=== PATIENT | female | born 1945 | race Caucasian/White ===

== ENCOUNTER 2016-09-18 08:38 | Outpatient (CLI) | payer MEDICARE, BC | END 2016-09-18 08:39 | disposition home or self-care (01) | DX: E11.9 Type 2 diabetes mellitus without complications (principal); E78.9 Disorder of lipoprotein metabolism, unspecified ==

== ENCOUNTER 2016-09-28 07:40 | Outpatient (CLI) | payer MEDICARE, BC | END 2016-09-28 07:41 | disposition home or self-care (01) | DX: M54.9 Dorsalgia, unspecified (principal); R53.1 Weakness; W19.XXXA Unspecified fall, initial encounter; M48.06 Spinal stenosis, lumbar region; M25.78 Osteophyte, vertebrae ==

== ENCOUNTER 2016-11-14 14:00 | Outpatient (CLI) | payer MEDICARE, BC | END 2016-11-14 14:01 | disposition short-term general hospital (02) | DX: R07.9 Chest pain, unspecified (principal) | CPT/HCPCS: A0425; A0427 ==

== ENCOUNTER 2016-12-18 11:03 | Outpatient (CLI) | payer MEDICARE, BC | END 2016-12-18 11:04 | disposition home or self-care (01) | DX: E11.9 Type 2 diabetes mellitus without complications (principal) ==

== ENCOUNTER 2017-12-24 07:19 | Day surgery (SDC) | payer MEDICARE, BC ==
[2017-12-24] MEDS ORDERED: LACTATED RINGERS 1,000 ML IV ONE (07:44)
[2017-12-24] MEDS ORDERED: MIDAZOLAM 2 MG/2 ML VIAL IVP ONE (08:28)
[2017-12-24] MEDS ORDERED: fentaNYL 250 MCG/5 ML VIAL IVP ONE (08:28)
[2017-12-24] MEDS ORDERED: GLUCAGON 1 MG/ML VIAL IM ONE (08:28)
[2017-12-24 12:24] VITALS: BP 134/55
== END 2017-12-24 07:20 | disposition home or self-care (01) ==
LOC: SDS 07:19
PROVIDERS: ATTEND Surgery
PROC: 0DBN8ZX Excision of Sigmoid Colon, Via Natural or Artificial Opening Endoscopic, Diagnostic (ICD-10-PCS; principal; 2017-12-24 08:15)
DX: Z12.11 Encounter for screening for malignant neoplasm of colon (principal); D12.5 Benign neoplasm of sigmoid colon; K57.30 Diverticulosis of large intestine without perforation or abscess without bleeding; E11.9 Type 2 diabetes mellitus without complications; G47.33 Obstructive sleep apnea (adult) (pediatric); Z79.82 Long term (current) use of aspirin
CPT/HCPCS: 45384; J7120; 88305

== ENCOUNTER 2018-03-24 10:23 | Outpatient (CLI) | payer MEDICARE, BC ==
[2018-03-24 18:43] LABS: ALBUMIN/GLOBULIN RATIO 1.3 (1.0-2.2); ALKALINE PHOSPHATASE 58 IU/L (42-121); ALT ALANINE AMINOTRANSFERASE 25 IU/L (10-60); AST ASPARTATE AMINOTRANSFERASE 23 IU/L (10-42); BILIRUBIN,TOTAL 1.4 mg/dL (0.2-1.0); BUN - BLOOD UREA NITROGEN 13 mg/dL (6-20); CALCIUM 9.1 mg/dL (8.5-10.3); CARBON DIOXIDE - CO2 28 mmol/L (21-32); CHLORIDE 101 mmol/L (101-111); CHOL/HDL RATIO 4.3 (<4.4); CHOLESTEROL 212 mg/dL; CREATININE 0.6 mg/dL (0.4-1.0); GFR - MDRD 98 (>89); GLUCOSE 108 mg/dL (70-100); HDL CHOLESTEROL 49 mg/dL; LDL CHOLESTEROL,CALCULATED 142 mg/dL; LDL/HDL RATIO 2.9 (<4.4); SODIUM 137 mmol/L (135-145); TOTAL PROTEIN 7.2 g/dL (6.7-8.2); VLDL CHOLESTEROL 21 mg/dL
[2018-03-24 20:34] LABS: HB2 TOTAL 15.2 g/dL; HEMOGLOBIN A1C 0.64 g/dL
== END 2018-03-24 10:24 | disposition home or self-care (01) ==
LOC: LAB.F 10:23
PROVIDERS: ATTEND Physician Assistant Medical
DX: E78.9 Disorder of lipoprotein metabolism, unspecified (principal); R73.01 Impaired fasting glucose
CPT/HCPCS: 36415; 80053; 80061; 83036; 83721

== ENCOUNTER 2018-07-16 09:51 | Outpatient (CLI) | payer MEDICARE, BC ==
[2018-07-16 17:55] LABS: ALBUMIN 3.9 g/dL (3.2-5.5); ALBUMIN/GLOBULIN RATIO 1.3 (1.0-2.2); ALKALINE PHOSPHATASE 70 IU/L (42-121); ALT ALANINE AMINOTRANSFERASE 24 IU/L (10-60); AST ASPARTATE AMINOTRANSFERASE 20 IU/L (10-42); BILIRUBIN,TOTAL 1.1 mg/dL (0.2-1.0); BUN - BLOOD UREA NITROGEN 12 mg/dL (6-20); CALCIUM 8.8 mg/dL (8.5-10.3); CARBON DIOXIDE - CO2 29 mmol/L (21-32); CHLORIDE 103 mmol/L (101-111); CHOL/HDL RATIO 4.4 (<4.4); CHOLESTEROL 221 mg/dL; CREATININE 0.4 mg/dL (0.4-1.0); GFR - MDRD 157 (>89); GLUCOSE 107 mg/dL (70-100); HDL CHOLESTEROL 50 mg/dL; LDL CHOLESTEROL,CALCULATED 143 mg/dL; LDL/HDL RATIO 2.9 (<4.4); SODIUM 137 mmol/L (135-145); TOTAL PROTEIN 6.9 g/dL (6.7-8.2); VLDL CHOLESTEROL 28 mg/dL
[2018-07-16 18:33] LABS: HB2 TOTAL 14.6 g/dL; HEMOGLOBIN A1C 0.6 g/dL; HEMOGLOBIN A1C % 5.9 % (4.6-6.2)
== END 2018-07-16 09:52 | disposition home or self-care (01) ==
LOC: LAB.F 09:51
PROVIDERS: ATTEND Physician Assistant Medical
DX: Z51.81 Encounter for therapeutic drug level monitoring (principal); R73.01 Impaired fasting glucose; E78.9 Disorder of lipoprotein metabolism, unspecified; Z79.899 Other long term (current) drug therapy; E78.5 Hyperlipidemia, unspecified
CPT/HCPCS: 36415; 80053; 80061; 83036; 83721

== ENCOUNTER 2019-03-09 12:02 | Emergency (ER) | payer MEDICARE, BC ==
--- NOTE | 2019-03-09 12:45 | ED Physician Documentation ---
PD HPI LOWER EXT INJURY - Stated complaint Stated Complaint: LT FOOT PX/GLF - Chief complaint Chief Complaint: Trauma Ext - History obtained from History obtained from: Patient - History of Present Illness PD HPI LOW EXT INJURY LOCATION: Left (trip and fall yesterday tripping on a hose yesterday at 3pm. C/O L shoulder and foot pain. No head/neck inj. Can walk without limp.) Review of Systems Constitutional: denies: Fever, Chills Cardiac: denies: Chest pain / pressure, Palpitations Respiratory: denies: Dyspnea, Cough Musculoskeletal: reports: Pain with weight bearing Neurologic: denies: Headache, Head injury, LOC PD PAST MEDICAL HISTORY - Past Medical History Cardiovascular: Arrhythmia Respiratory: Asthma Neuro: None Endocrine/Autoimmune: Type 2 diabetes GI: Chronic constipation : Kidney stones, Other HEENT: None Psych: Anxiety Musculoskeletal: Gout, Chronic back pain, Other Derm: Herpes zoster - Past Surgical History Past Surgical History: Yes General: Cholecystectomy, Appendectomy /SIGNAL FITTER: Hysterectomy - Present Medications Home Medications: Ambulatory Orders Medication Instructions Recorded Confirmed EPINEPHrine [Epipen] 0.3 mg IM ONCE PRN 01/19/13 12/24/17 Aspirin [Aspir 81] 81 mg PO DAILY PRN 03/10/14 12/23/17 Albuterol Sulfate [Proair Hfa 1 - 2 puffs INH Q4H PRN 12/23/17 12/23/17 Inhaler] Alprazolam [Alprazolam Odt] 0.25 mg PO PRN PRN 12/23/17 12/24/17 Cholecalciferol (Vitamin D3) 4,000 unit PO DAILY 12/23/17 12/24/17 [Vitamin D3] Fexofenadine HCl 180 mg PO DAILY 12/23/17 12/24/17 Fluticasone [Flonase] 1 sprays PARAM BID 12/23/17 12/24/17 Knee Scooter 1 unit TD ONCE #1 03/09/19 - Allergies Allergies/Adverse Reactions: Allergies Allergy/AdvReac Type Severity Reaction Status Date / Time ipratropium bromide * Allergy Respiratory Verified 03/09/19 12:13 [From Atrovent] peanut Allergy Anaphylaxis Verified 03/09/19 12:13 Penicillins Allergy Rash Verified 03/09/19 12:13 Sulfa (Sulfonamide Allergy Rash Verified 03/09/19 12:13 Antibiotics) apples Allergy Severe Respiratory Uncoded 03/09/19 12:13 kiwi Allergy Severe Respiratory Uncoded 03/09/19 12:13 strawberries Allergy Severe Respiratory Uncoded 03/09/19 12:13 guafenisin Allergy Mild Respiratory Uncoded 03/09/19 12:13 - Social History Does the pt smoke?: No Smoking Status: Never smoker Does the pt drink ETOH?: Yes Does the pt have substance abuse?: No - Immunizations Immunizations are current?: No - POLST Patient has POLST: Yes POLST Status: unk PD ED PE NORMAL - Vitals Vital signs reviewed: Yes - General General: Alert and oriented X 3, No acute distress - Neck Neck: Supple, no meningeal sign, No bony TTP - Back Back: No spinal TTP - Extremities Extremities: Other (Anterior L shoulder TTP and upper bicep, cannot abduct but flex/ext is ok but with pain. Ecchymosis about lateral hip but no TTP. Lateral left foot swollen and TTP.) - Neuro Neuro: Alert and oriented X 3, Normal speech - Psych Psych: Normal mood, Normal affect Results - Vitals Vitals: Vital Signs - 24 hr 03/09/19 12:13 Temperature 37 C Heart Rate 66 Respiratory 20 Rate Blood Pressure 148/79 H O2 Saturation 99 Oxygen O2 Source Room air - Rads (name of study) X-rays of the left shoulder and left foot Radiology: EMP read contemporaneously (Left shoulder is negative, the left foot she has a mildly displaced shaft fracture of the fifth metatarsal) PD MEDICAL DECISION MAKING - ED course ED course: After discussion she refused fiberglass splinting which I recommended along with nonweightbearing status pending orthopedic follow-up. As such she signed AMA only for the fiberglass splint, and will go into a boot pending orthopedic follow-up. She understands she should still be nonweightbearing. Departure - Departure Disposition: 01 Home, Self Care Clinical Impression: Contusion of left shoulder Qualifiers: Encounter type: initial encounter Qualified Code(s): S40.012A - Contusion of left shoulder, initial encounter Fracture of fifth metatarsal bone of left foot Qualifiers: Encounter type: initial encounter Fracture type: closed Fracture alignment: displaced Qualified Code(s): S92.352A - Displaced fracture of fifth metatarsal bone, left foot, initial encounter for closed fracture Condition: Good Record reviewed to determine appropriate education?: Yes Instructions: ED Fx Foot Follow-Up: [facility] [Provider Group] Prescriptions: Knee Scooter 1 unit TD ONCE #1 Comments: As discussed, I recommended that she go into a fiberglass splint and be nonweightbearing. You have refused this and we are placing you in a boot instead. Do not walk on it. Follow-up with the orthopedic surgeon as soon as possible.
--- NOTE | 2019-03-09 13:39 | XRAY Report ---
Reason: foot / shoulder injury, fall Procedure Date: 03/09/2019 Accession Number: [id number] / [id number] Procedure: XR - Shoulder 3 View LT CPT Code: FULL RESULT: EXAM: LEFT SHOULDER RADIOGRAPHY EXAM DATE: 03/09/2019 01:23 PM. CLINICAL HISTORY: Foot / shoulder injury, fall. COMPARISON: None available. TECHNIQUE: 3 views. FINDINGS: Bones: No acute fracture or dislocation. Joints: The glenohumeral and acromioclavicular joints are intact. Mild degenerative change of the acromioclavicular joint. Soft tissues: Unremarkable. IMPRESSION: No acute fracture or dislocation of the left shoulder. RADIA
--- NOTE | 2019-03-09 13:42 | XRAY Report ---
Reason: foot / shoulder injury, fall Procedure Date: 03/09/2019 Accession Number: [id number] / [id number] Procedure: XR - Foot 3 View LT CPT Code: FULL RESULT: EXAM: LEFT FOOT RADIOGRAPHY EXAM DATE: 03/09/2019 01:18 PM. CLINICAL HISTORY: Foot / shoulder injury, fall. COMPARISON: LEFT FOOT 04/23/2006 10:05 AM. TECHNIQUE: 3 views. FINDINGS: Bones: There is an acute fracture of the left fifth metatarsal diaphysis, which is displaced medially approximately 4 mm. No additional fractures or dislocations. Degenerative calcaneal spurring at the posterior and plantar surfaces. Joints: Redemonstrated hallux valgus deformity. Mild narrowing of the first metatarsophalangeal joint space. No ankle joint effusion. Soft Tissues: Soft tissue swelling at the fracture site. Probable bunion formation medial to the first metatarsal head. Small enthesophyte formation in the distal Achilles tendon near the calcaneal attachment. No radiopaque foreign body. IMPRESSION: Acute, mildly displaced fracture through the left fifth metatarsal diaphysis. RADIA
[2019-03-09 14:08] VITALS: BP 151/84
== END 2019-03-09 14:16 | disposition home or self-care (01) ==
LOC: ED 12:02
DX: S40.012A Contusion of left shoulder, initial encounter (principal); S92.352A Displaced fracture of fifth metatarsal bone, left foot, initial encounter for closed fracture; W01.0XXA Fall on same level from slipping, tripping and stumbling without subsequent striking against object, initial encounter; E11.9 Type 2 diabetes mellitus without complications
CPT/HCPCS: 99282; 99284

== ENCOUNTER 2019-05-19 15:55 | Outpatient (CLI) | payer MEDICARE, BC | END 2019-05-19 23:59 | disposition home or self-care (01) | LOC: LAB.R 15:55 | PROVIDERS: ATTEND Family Medicine | DX: R39.15 Urgency of urination (principal) | CPT/HCPCS: 87086; 87181 ==

== ENCOUNTER 2019-09-02 09:11 | Outpatient (CLI) | payer MEDICARE, BC ==
--- NOTE | 2019-09-02 17:03 | Ultrasound Report ---
Reason: FACIAL NUMBNESS Procedure Date: 09/02/2019 Accession Number: [id number] / [id number] Procedure: US - Carotid Doppler Complete CPT Code: Final Report FULL RESULT: EXAM: BILATERAL CAROTID AND VERTEBRAL ARTERY DUPLEX DOPPLER ULTRASOUND: EXAM DATE: 09/02/2019 10:19 AM CLINICAL HISTORY: Facial numbness. COMPARISON: None. TECHNIQUE: Grayscale imaging, color Doppler, and duplex spectral Doppler were used to evaluate the carotid and vertebral arteries bilaterally. Static images were obtained. FINDINGS: Mild diffuse intimal thickening. No significant plaque is identified in the right or left common or internal carotid arteries. Normal antegrade flow is present in bilateral vertebral arteries. VELOCITIES (cm/sec): Right CCA mid: PSV 72 cm/sec CCA dist: PSV 76 cm/sec ICA prox: PSV 58 cm/sec, EDV 19 cm/sec ICA mid: PSV 116 cm/sec, EDV 45 cm/sec ICA dist: PSV 44 cm/sec, EDV 18 cm/sec ECA: PSV 66 cm/sec Vert: PSV 74 cm/sec ICA/CCA: 1.53 Left CCA mid: PSV 95 cm/sec CCA dist: PSV 78 cm/sec ICA prox: PSV 85 cm/sec, EDV 22 cm/sec ICA mid: PSV 92 cm/sec, EDV 25 cm/sec ICA dist: PSV 69 cm/sec, EDV 26 cm/sec ECA: PSV 78 cm/sec Vert: PSV 69 cm/sec ICA/CCA: 0.89 ICA diameter stenosis: Right: <50% by velocity and <70% by NASCET criteria. Left: <50% by velocity and <70% by NASCET criteria. IMPRESSION: 1. Minimal bilateral intimal thickening. Nohemodynamically significant stenosis bilaterally. 3. Normal antegrade flow in bilateral vertebral arteries. General Recommendations: Stenosis =50% ICA - Follow-up ultrasound 6-12 months Stenosis <50% ICA - High Risk Patient with plaque - Follow-up ultrasound 1-2 years Normal Study but High Risk Patient - Follow-up ultrasound 3-5 years Management recommendations and diagnostic criteria are based on current IAC endorsed standards in Carotid Artery Stenosis: Grayscale and Doppler Ultrasound Diagnosis. Validated velocity measurements with angiographic measurements and velocity criteria are extrapolated from diameter data as defined by the Society of Radiologists in Ultrasound Consensus Conference Radiology 2003; 229;340-346. RADIA
== END 2019-09-02 09:12 | disposition home or self-care (01) ==
LOC: DI 09:11
PROVIDERS: ATTEND Physician Assistant Medical
DX: R20.0 Anesthesia of skin (principal); R29.810 Facial weakness
CPT/HCPCS: 93880

== ENCOUNTER 2019-10-06 08:00 | Outpatient (CLI) | payer MEDICARE, BC | END 2019-10-06 23:59 | disposition home or self-care (01) | LOC: LAB.F 08:00 | PROVIDERS: ATTEND Family Medicine | DX: J02.9 Acute pharyngitis, unspecified (principal) ==

== ENCOUNTER 2020-01-28 07:54 | Outpatient (CLI) | payer MEDICARE, BC ==
[2020-01-28 14:59] LABS: BASOPHILS # (AUTO) 0.1 10^3/uL (0.0-0.1); BASOPHILS % (AUTO) 0.7 %; EOSINOPHILS # (AUTO) 0.4 10^3/uL (0.0-0.7); EOSINOPHILS % (AUTO) 4.5 %; HGB - HEMOGLOBIN 14.3 g/dL (12.0-16.0); LYMPHOCYTES # (AUTO) 2.4 10^3/uL (1.5-3.5); LYMPHOCYTES % (AUTO) 27.3 %; MEAN CORPUSCULAR HEMOGLOBIN 27.4 pg (27.0-31.0); MEAN CORPUSCULAR HGB CONC 31.8 g/dL (32.0-36.0); MEAN CORPUSCULAR VOLUME 86.2 fL (81.0-99.0); MEAN PLATELET VOLUME 9.5 fL (7.9-10.8); MONOCYTES # (AUTO) 0.6 10^3/uL (0.0-1.0); MONOCYTES % (AUTO) 7.1 %; NEUTROPHILS # (AUTO) 5.3 10^3/uL (1.5-6.6); NEUTROPHILS % (AUTO) 60.1 %; PLT - PLATELET COUNT 401 10^3/uL (130-450); RED BLOOD COUNT 5.22 10^6/uL (4.20-5.40); RED CELL DISTRIBUTION WIDTH 13.8 % (12.0-15.0); WHITE BLOOD COUNT 8.7 x10^3/uL (4.8-10.8)
[2020-01-28 15:30] LABS: ALBUMIN 3.8 g/dL (3.2-5.5); ALBUMIN/GLOBULIN RATIO 1.2 (1.0-2.2); ALKALINE PHOSPHATASE 63 IU/L (42-121); ALT ALANINE AMINOTRANSFERASE 18 IU/L (10-60); AST ASPARTATE AMINOTRANSFERASE 18 IU/L (10-42); BUN - BLOOD UREA NITROGEN 12 mg/dL (6-20); CALCIUM 8.8 mg/dL (8.5-10.3); CARBON DIOXIDE - CO2 29 mmol/L (21-32); CHLORIDE 103 mmol/L (101-111); CHOL/HDL RATIO 4.6 (<4.4); CHOLESTEROL 193 mg/dL; CREATININE 0.6 mg/dL (0.4-1.0); GLUCOSE 106 mg/dL (70-100); HDL CHOLESTEROL 42 mg/dL; LDL CHOLESTEROL,CALCULATED 122 mg/dL; LDL/HDL RATIO 2.9 (<4.4); SODIUM 138 mmol/L (135-145); VLDL CHOLESTEROL 29 mg/dL
[2020-01-28 15:51] LABS: HB2 TOTAL 14.5 g/dL; HEMOGLOBIN A1C 0.6 g/dL; HEMOGLOBIN A1C % 5.9 % (4.6-6.2)
== END 2020-01-28 07:55 | disposition home or self-care (01) ==
LOC: LAB.S 07:54
PROVIDERS: ATTEND Family Medicine
DX: Z00.00 Encounter for general adult medical examination without abnormal findings (principal); Z51.81 Encounter for therapeutic drug level monitoring; G47.9 Sleep disorder, unspecified; R73.01 Impaired fasting glucose; E78.5 Hyperlipidemia, unspecified
CPT/HCPCS: 36415; 80053; 80061; 83036; 83721; 84443; 85025

== ENCOUNTER 2020-02-25 14:40 | Outpatient (CLI) | payer MEDICARE, BC | END 2020-02-25 23:59 | disposition home or self-care (01) | LOC: COV 14:40 | PROVIDERS: ATTEND Family Medicine | DX: R05 Cough (principal); R09.81 Nasal congestion; Z20.828 Contact with and (suspected) exposure to other viral communicable diseases ==

== ENCOUNTER 2020-06-13 09:30 | Outpatient (CLI) | payer MEDICARE, BC | END 2020-06-13 23:59 | disposition home or self-care (01) | LOC: LAB.R 09:30 | PROVIDERS: ATTEND Physician Assistant Medical | DX: N39.0 Urinary tract infection, site not specified (principal); R30.0 Dysuria | CPT/HCPCS: 87086; 87181 ==

== ENCOUNTER 2020-07-03 14:29 | Outpatient (CLI) | payer MEDICARE, BC ==
--- NOTE | 2020-07-03 15:42 | XRAY Report ---
PROCEDURE: Shoulder 3 View BILAT INDICATIONS: PAIN, SHOULDER TECHNIQUE: 3 views of each shoulder were acquired. COMPARISON: 03/09/2019 FINDINGS: Bones: No fractures or dislocations. No suspicious bony lesions. Visualized ribs appear intact. A ge-appropriate degenerative changes are seen. Soft tissues: No suspicious soft tissue calcifications. The visualized lung demonstrates a normal a ppearance. IMPRESSION: Unremarkable shoulder plain films for age, with age-appropriate degenerative changes not ed. If it would be helpful for clinical management decision making, please consider a dedicated shoulder MRI for further evaluation (assuming that there is no contraindication). If there is strong clinical concern for labral pathology, then please consider performing this according to the arthrogram protoc ol. Reviewed by: Luther Angelo MD on 07/03/2020 2:40 PM [facility] Approved by: Luther Angelo MD on 07/03/2020 2:40 PM [facility] Station ID: [id number]
[2020-07-03 18:24] LABS: BASOPHILS # (AUTO) 0.1 10^3/uL (0.0-0.1); BASOPHILS % (AUTO) 0.7 %; EOSINOPHILS # (AUTO) 0.2 10^3/uL (0.0-0.7); EOSINOPHILS % (AUTO) 2.4 %; HGB - HEMOGLOBIN 12.9 g/dL (12.0-16.0); LYMPHOCYTES # (AUTO) 2.3 10^3/uL (1.5-3.5); LYMPHOCYTES % (AUTO) 27.8 %; MEAN CORPUSCULAR HEMOGLOBIN 26.7 pg (27.0-31.0); MEAN CORPUSCULAR HGB CONC 31.2 g/dL (32.0-36.0); MEAN CORPUSCULAR VOLUME 85.5 fL (81.0-99.0); MEAN PLATELET VOLUME 9.3 fL (7.9-10.8); MONOCYTES # (AUTO) 0.6 10^3/uL (0.0-1.0); MONOCYTES % (AUTO) 6.8 %; NEUTROPHILS # (AUTO) 5.2 10^3/uL (1.5-6.6); NEUTROPHILS % (AUTO) 61.9 %; PLT - PLATELET COUNT 425 10^3/uL (130-450); RED BLOOD COUNT 4.84 10^6/uL (4.20-5.40); RED CELL DISTRIBUTION WIDTH 13.8 % (12.0-15.0); WHITE BLOOD COUNT 8.4 x10^3/uL (4.8-10.8)
[2020-07-03 18:53] LABS: RHEUMATOID FACTOR NEGATIVE (Negative)
== END 2020-07-03 14:30 | disposition home or self-care (01) ==
LOC: DI.S 14:29
PROVIDERS: ATTEND Internal Medicine
DX: M25.512 Pain in left shoulder (principal); M25.511 Pain in right shoulder; M25.50 Pain in unspecified joint
CPT/HCPCS: 36415; 85025; 85651; 86038; 86430

== ENCOUNTER 2020-08-29 08:00 | Outpatient (CLI) | payer MEDICARE, BC | END 2020-08-29 23:59 | disposition home or self-care (01) | LOC: LAB.R 08:00 | PROVIDERS: ATTEND Internal Medicine | DX: R30.0 Dysuria (principal) | CPT/HCPCS: 87086 ==

== ENCOUNTER 2021-01-30 17:32 | Outpatient (CLI) | payer MEDICARE, BC | END 2021-01-30 17:33 | disposition home or self-care (01) | LOC: COV 17:32 | PROVIDERS: ATTEND Urology | DX: Z01.812 Encounter for preprocedural laboratory examination (principal); Z20.822 Contact with and (suspected) exposure to COVID-19 ==

== ENCOUNTER 2021-03-14 17:35 | Outpatient (CLI) | payer MEDICARE, BC ==
[2021-03-14 19:52] LABS: BASOPHILS # (AUTO) 0.1 10^3/uL (0.0-0.1); BASOPHILS % (AUTO) 0.6 %; EOSINOPHILS # (AUTO) 0.3 10^3/uL (0.0-0.7); EOSINOPHILS % (AUTO) 3.9 %; HCT - HEMATOCRIT 37.8 % (37.0-47.0); HGB - HEMOGLOBIN 12.1 g/dL (12.0-16.0); LYMPHOCYTES # (AUTO) 2.2 10^3/uL (1.5-3.5); LYMPHOCYTES % (AUTO) 28.1 %; MEAN CORPUSCULAR HEMOGLOBIN 27.6 pg (27.0-31.0); MEAN CORPUSCULAR VOLUME 86.1 fL (81.0-99.0); MEAN PLATELET VOLUME 9.2 fL (7.9-10.8); MONOCYTES # (AUTO) 0.6 10^3/uL (0.0-1.0); MONOCYTES % (AUTO) 7.3 %; NEUTROPHILS # (AUTO) 4.6 10^3/uL (1.5-6.6); NEUTROPHILS % (AUTO) 59.7 %; PLT - PLATELET COUNT 377 10^3/uL (130-450); RED BLOOD COUNT 4.39 10^6/uL (4.20-5.40); RED CELL DISTRIBUTION WIDTH 13.7 % (12.0-15.0); WHITE BLOOD COUNT 7.8 x10^3/uL (4.8-10.8)
[2021-03-14 20:12] LABS: ALBUMIN 3.9 g/dL (3.2-5.5); ALBUMIN/GLOBULIN RATIO 1.4 (1.0-2.2); BILIRUBIN,TOTAL 0.7 mg/dL (0.2-1.0); POTASSIUM 4.1 mmol/L (3.5-5.0); TOTAL PROTEIN 6.7 g/dL (6.7-8.2)
[2021-03-14 21:10] LABS: ESTIMATED AVERAGE GLUCOSE 126 mg/dL (70-100)
== END 2021-03-14 17:36 | disposition home or self-care (01) ==
LOC: LAB.S 17:35
PROVIDERS: ATTEND Internal Medicine
DX: Z00.00 Encounter for general adult medical examination without abnormal findings (principal); Z79.899 Other long term (current) drug therapy; R73.01 Impaired fasting glucose
CPT/HCPCS: 36415; 80053; 83036; 85025

== ENCOUNTER 2021-05-12 16:26 | Outpatient (CLI) | payer MEDICARE, BC ==
[2021-05-12 20:08] LABS: ALBUMIN 3.8 g/dL (3.2-5.5); ALBUMIN/GLOBULIN RATIO 1.2 (1.0-2.2); CALCIUM 8.9 mg/dL (8.5-10.3); CREATININE 1.1 mg/dL (0.4-1.0); POTASSIUM 3.6 mmol/L (3.5-5.0); TOTAL PROTEIN 7.1 g/dL (6.7-8.2); URIC ACID 5.3 mg/dL (2.6-7.2)
== END 2021-05-12 16:27 | disposition home or self-care (01) ==
LOC: LAB.S 16:26
PROVIDERS: ATTEND Internal Medicine
DX: M10.9 Gout, unspecified (principal); Z79.899 Other long term (current) drug therapy
CPT/HCPCS: 36415; 80053; 84550

== ENCOUNTER 2021-07-19 19:44 | Outpatient (CLI) | payer MEDICARE, BC ==
--- NOTE | 2021-07-19 21:03 | Ultrasound Report ---
PROCEDURE: Duplex Ext Veins Right INDICATIONS: RIGHT CALF PAIN TECHNIQUE: Real-time imaging, as well as color and pulse Doppler interrogation, were performed of the lower extr emity deep veins from the inguinal ligament to the popliteal fossa. COMPARISON: None. FINDINGS: The deep veins are normally compressible, and free of intraluminal thrombus. Color and pu lse Doppler demonstrate normal phasic intraluminal flow. There is normal augmentation response to di stal compression maneuver. There is a large cystic collection in the posterior calf which may represent a large anchor cyst. It measures 2.2 x 3.2 x 7.5 cm. IMPRESSION: 1. No evidence of DVT, right lower extremity. 2. 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 Reviewed by: Shen Mendez MD on 07/19/2021 9:02 PM [facility] Approved by: Shen Mendez MD on 07/19/2021 9:02 PM [facility] Station ID: [id number]
== END 2021-07-19 19:45 | disposition home or self-care (01) ==
LOC: DI 19:44
PROVIDERS: ATTEND Internal Medicine
DX: M79.661 Pain in right lower leg (principal)

== ENCOUNTER 2021-09-11 11:36 | Outpatient (CLI) | payer MEDICARE, BC ==
[2021-09-11 15:38] LABS: ALBUMIN 3.6 g/dL (3.2-5.5); CALCIUM 9.2 mg/dL (8.5-10.3); PHOSPHORUS 3.1 mg/dL (2.5-4.6)
[2021-09-13 10:08] LABS: NIL 0.17 IU/mL; TB1-NIL 2.55 IU/mL; TB2-NIL 2.31 IU/mL
== END 2021-09-11 11:37 | disposition home or self-care (01) ==
LOC: LAB.S 11:36
PROVIDERS: ATTEND Internal Medicine
DX: N18.2 Chronic kidney disease, stage 2 (mild) (principal)
CPT/HCPCS: 36415; 80069; 86480

== ENCOUNTER 2021-09-20 13:47 | Outpatient (CLI) | payer MEDICARE, BC ==
[2021-09-20 21:11] LABS: BILIRUBIN,URINE NEGATIVE (NEGATIVE); CLARITY,URINE CLEAR (CLEAR); GLUCOSE, URINE (UA) NEGATIVE (NEGATIVE); KETONES,URINE (UA) NEGATIVE (NEGATIVE); LEUKOCYTE ESTERASE, URINE SMALL (NEGATIVE); NITRITE,URINE NEGATIVE (NEGATIVE); OCCULT BLOOD,URINE SMALL (NEGATIVE); PROTEIN,URINE NEGATIVE (NEGATIVE); UROBILINOGEN,URINE 0.2 (NORMAL) E.U./dL (NORMAL)
[2021-09-20 21:21] LABS: BACTERIA,URINE Rare /HPF (None Seen); SQUAMOUS EPITHELIAL CELL,UR MOD Squamous (<= Few)
== END 2021-09-20 13:48 | disposition home or self-care (01) ==
LOC: LAB.S 13:47
PROVIDERS: ATTEND Urology
DX: R35.0 Frequency of micturition (principal)
CPT/HCPCS: 36415; 80069; 81001; 81003; 87086

== ENCOUNTER 2021-09-29 08:00 | Outpatient (CLI) | payer MEDICARE, BC | END 2021-09-29 23:59 | disposition home or self-care (01) | LOC: LAB.F 08:00 | PROVIDERS: ATTEND Registered Nurse | DX: R30.0 Dysuria (principal) | CPT/HCPCS: 81002 ==

== ENCOUNTER 2021-10-03 10:57 | Outpatient (CLI) | payer MEDICARE, BC ==
[2021-10-03 15:30] LABS: ALBUMIN 3.7 g/dL (3.2-5.5); ALBUMIN/GLOBULIN RATIO 1.1 (1.0-2.2); BILIRUBIN,TOTAL 0.9 mg/dL (0.2-1.0); CALCIUM 8.9 mg/dL (8.5-10.3); CREATININE 0.9 mg/dL (0.4-1.0); POTASSIUM 4.2 mmol/L (3.5-5.0)
[2021-10-03 21:09] LABS: ESTIMATED AVERAGE GLUCOSE 123 mg/dL (70-100); HEMOGLOBIN A1c% 5.9 % (4.27-6.07)
== END 2021-10-03 10:58 | disposition home or self-care (01) ==
LOC: LAB.S 10:57
PROVIDERS: ATTEND Internal Medicine
DX: I10 Essential (primary) hypertension (principal); R73.9 Hyperglycemia, unspecified
CPT/HCPCS: 36415; 80053; 83036

== ENCOUNTER 2021-12-29 08:00 | Outpatient (CLI) | payer MEDICARE, BC ==
[2021-12-29 14:55] LABS: BASOPHILS # (AUTO) 0.1 10^3/uL (0.0-0.1); BASOPHILS % (AUTO) 0.6 %; EOSINOPHILS # (AUTO) 0.1 10^3/uL (0.0-0.7); EOSINOPHILS % (AUTO) 1.4 %; HCT - HEMATOCRIT 40.6 % (37.0-47.0); HGB - HEMOGLOBIN 13.1 g/dL (12.0-16.0); LYMPHOCYTES # (AUTO) 1.5 10^3/uL (1.5-3.5); LYMPHOCYTES % (AUTO) 17.1 %; MEAN CORPUSCULAR HEMOGLOBIN 26.7 pg (27.0-31.0); MEAN CORPUSCULAR HGB CONC 32.3 g/dL (32.0-36.0); MEAN CORPUSCULAR VOLUME 82.9 fL (81.0-99.0); MEAN PLATELET VOLUME 9.1 fL (7.9-10.8); MONOCYTES # (AUTO) 0.5 10^3/uL (0.0-1.0); MONOCYTES % (AUTO) 5.6 %; NEUTROPHILS # (AUTO) 6.7 10^3/uL (1.5-6.6); PLT - PLATELET COUNT 438 10^3/uL (130-450); RED CELL DISTRIBUTION WIDTH 14.1 % (12.0-15.0); WHITE BLOOD COUNT 8.9 x10^3/uL (4.8-10.8)
[2021-12-29 15:02] LABS: CREATININE 0.9 mg/dL (0.4-1.0); MAGNESIUM 2.4 mg/dL (1.7-2.8)
== END 2021-12-29 23:59 | disposition home or self-care (01) ==
LOC: LAB.S 08:00
PROVIDERS: ATTEND Emergency Medicine
DX: I10 Essential (primary) hypertension (principal); M79.662 Pain in left lower leg
CPT/HCPCS: 36415; 80048; 83735; 85025; 85379

== ENCOUNTER 2022-03-14 11:00 | Outpatient (CLI) | payer MEDICARE, BC ==
[2022-03-14 12:17] VITALS: BP 125/80
--- NOTE | 2022-03-14 12:17 | SLEEP CARE CONSULTATION ---
Information from patient questionnaire entered by Lacey Wilson MA. I have reviewed and concur with the information entered by Lacey Wilson MA. This document represents the service I personally performed and the decisions made by me, Jerrica Robertson ARNP. History of Present Illness Service Date and Time: 03/14/2022 1100 Reason for Visit: New patient (ONSET 08/12/2019, PRIOR SS, PT WILL BRING PRIOR,) Accompanied by: Spouse Chief Complaint: reports: Insomnia, Unrefreshed sleep, Snoring, Observed pauses in breathing, Frequent awakenings at night Date of Onset: year plus Usual bedtime: 11-1200 Time it takes to fall asleep: 1-2 hours Snores at night: Yes (per ) Observed to quit breathing while asleep: Yes (per ) Sleeps alone due to snoring: No Number of times waking at night: 2-4 Reasons for waking at night: reports: Bathroom. denies: Choking, Snoring, Gasping for air Toss, Turn, or Twitch while sleeping: Yes Recalls having dreams: Yes (seldom) Usually gets out of bed at: [id number] Feels refreshed in the morning: No Morning headache: No Sleepy or fatigued during the day: No Ever fallen asleep while driving: Yes (occasional drowsy driving) Takes day naps: No Dreams during day naps: No Prior sleep studies: No Year and Where: 03/21/21 [facility] Type of Sleep Study: Polysomnography Additional HPI information: I had the pleasure of seeing JANNET GRACIA today regarding the possibility of her having a sleep disorder. Her current complaints are insomnia and possible sleep apnea. She had a PSG that showed mild obstructive sleep apnea with an AHI of 5.3. She did not follow up after the study to get results. She then had a health challenge of right kidney cancer and is just now coming back to follow up on her sleep study. - Parasomnia Symptoms Ever been unable to move upon waking from sleep: No Walks in sleep: No Talks in sleep: No Ever acted out dreams in sleep: No Ever felt weak in the knees when startled or emotional: No Bothered by creepy, crawly, restless sensations in legs: Yes Problems with memory or concentration: Yes (both) Subjective Initial [place] Sleepiness Scale score: 8 (03/14/2022) Past Medical History Past Medical History: reports: Asthma, Other (Kidney cancer, surgery to remove right kidney) Social History The patient's occupation is a RE. Patient is and lives in [place]. Have you smoked in the past 12 months: No (age 17 - 31 years) Cigarettes per day (20/pack): 40 Years of smokin Quit date: 1979 Smoking Pack Years: 60.0 Alcohol use: Yes Alcohol amount and frequency: 1 x monthly Caffeine use: Yes Caffeine amount and frequency: 1 x 2 daily Family History Family history of sleep disordered breathing: Yes Family Hx Sleep Apnea: Mother: Sleep apnea - Treated Allergies and Home Medications Known drug allergies: Yes Drug allergies reviewed: Yes (ipratropium bromide, penicillin, sulfa, guafinesen) Home medication list reviewed: Yes Allergy and home medication list: Allergies ipratropium bromide * [From Atrovent] Allergy (Verified 03/09/19 12:13) Respiratory peanut Allergy (Verified 03/09/19 12:13) Anaphylaxis Penicillins Allergy (Verified 03/09/19 12:13) Rash Sulfa (Sulfonamide Antibiotics) Allergy (Verified 03/09/19 12:13) Rash apples Allergy (Severe, Uncoded 03/09/19 12:13) Respiratory kiwi Allergy (Severe, Uncoded 03/09/19 12:13) Respiratory strawberries Allergy (Severe, Uncoded 03/09/19 12:13) Respiratory guafenisin Allergy (Mild, Uncoded 03/09/19 12:13) Respiratory Medications: Amlodipine Escitalopram Tylenol, prn Albuterol inhaler, prn Review of Systems Cardiovascular: reports: palpitations, irregular heart rate or pulse Respiratory: reports: other (asthma) Psychiatric: reports: anxiety Musculoskeletal: reports: joint pain, muscle pain or cramping Immunologic: reports: allergies to food or environment Physical Exam Vital signs obtained and entered by: DIANE LORENZO Blood Pressure: 125/80 (resp 18, pulse 70, left) Heart Rate: 71 O2 Saturation: 97 (adryan mask) Height: 5 ft 3 in Weight: 172 lb (clothes) Body Mass Index: 30.4 BMI Classification: Obese Impression and Plan 1. Suspected Obstructive Sleep Apnea-Hypopnea Syndrome, as previously diagnosed and as still suggested by a history of irregular snoring, observed cessation of breath while asleep, frequent awakening during the night, unrefreshed sleep and cognitive impairment. Patient was diagnosed with mild obstructive sleep apnea with an AHI of 5.1 with a sleep study done in March 2021. She never followed up and has not been on any therapy for her sleep apnea due to other health issues. I recommend proceeding to polysomnography to confirm the diagnosis and to assess severity. If the patient has significant sleep disordered breathing, a manual CPAP titration study will also be performed to find the optimal treatment pressure. I informed the patient of what the sleep studies involve and after some discussion, obtained agreement to proceed. The pathophysiology of obstructive sleep apnea-hypopnea syndrome was discussed with the patient and health risks of cardiovascular and cerebrovascular disease if not treated. Risks of drowsy driving discussed in detail and patient advised to avoid long d istance driving and to shoe puller at the first sign of drowsiness. Patient agreed to plan. * Schedule polysomnography * Avoid long distance driving or driving when feeling sleepy. * Avoid alcohol, sedative and muscle relaxant around bedtime. * Attempt to lose weight. * Review instructions provided by trained office staff on how to prepare for the sleep study. * Return for follow-up after sleep study completed. Counseling Topics: Weight loss health impact Visit Type: In Office Other Participants: Spouse/Significant Other Time Spent with Patient (minutes): 32 Provider Statement: I spent 100% of the Face to Face Visit with the patient with greater than 50% spent counseling the patient and coordination of care.
== END 2022-03-14 11:01 | disposition home or self-care (01) ==
LOC: SC 11:00
PROVIDERS: ATTEND Nurse Practitioner Family
DX: G47.33 Obstructive sleep apnea (adult) (pediatric) (principal); E66.9 Obesity, unspecified; Z68.30 Body mass index [BMI] 30.0-30.9, adult; Z87.891 Personal history of nicotine dependence
CPT/HCPCS: 99203; G0463; 99212

== ENCOUNTER 2022-04-25 08:00 | Outpatient (CLI) | payer MEDICARE, BC ==
[2022-04-25] MEDS ORDERED: DIATRIZOATE MEGLU/DIATRIZO SOD 30 ML BOTTLE PO ONE (16:13)
== END 2022-04-25 23:59 | disposition home or self-care (01) ==
LOC: LAB 08:00 → DI 15:43
PROVIDERS: ATTEND Registered Nurse
DX: Z53.9 Procedure and treatment not carried out, unspecified reason (principal)

== ENCOUNTER 2022-04-25 12:54 | Outpatient (CLI) | payer MEDICARE, BC ==
--- NOTE | 2022-04-25 14:48 | XRAY Report ---
PROCEDURE: Abdomen 1 View X-Ray INDICATIONS: ABDOMINAL PX TECHNIQUE: One view of the abdomen acquired. COMPARISON: None FINDINGS: Surgical changes and devices: There are surgical clips present involving the patient's right mid abdo men. Bowel: Bowel gas pattern is normal. Soft tissues: No suspicious abdominal calcifications. Visualized solid organ contours appear normal in size. Bones: No suspicious bony lesions. IMPRESSION: 1. Nonspecific bowel gas pattern. 2. Postsurgical changes right midabdomen. 3. Mild lumbar scoliosis. Reviewed by: Rc Youssef MD on 04/25/2022 2:47 PM PDT Approved by: Rc Youssef MD on 04/25/2022 2:47 PM PDT Station ID: [id number]
[2022-04-25 17:50] LABS: BASOPHILS % (AUTO) 0.5 %; EOSINOPHILS # (AUTO) 0.2 10^3/uL (0.0-0.7); EOSINOPHILS % (AUTO) 1.9 %; HCT - HEMATOCRIT 42.5 % (37.0-47.0); HGB - HEMOGLOBIN 13.7 g/dL (12.0-16.0); LYMPHOCYTES # (AUTO) 1.8 10^3/uL (1.5-3.5); LYMPHOCYTES % (AUTO) 21.5 %; MEAN CORPUSCULAR HEMOGLOBIN 26.8 pg (27.0-31.0); MEAN CORPUSCULAR HGB CONC 32.2 g/dL (32.0-36.0); MEAN PLATELET VOLUME 9.4 fL (7.9-10.8); MONOCYTES # (AUTO) 0.6 10^3/uL (0.0-1.0); MONOCYTES % (AUTO) 7.7 %; NEUTROPHILS # (AUTO) 5.6 10^3/uL (1.5-6.6); PLT - PLATELET COUNT 418 10^3/uL (130-450); RED BLOOD COUNT 5.12 10^6/uL (4.20-5.40); RED CELL DISTRIBUTION WIDTH 13.9 % (12.0-15.0); WHITE BLOOD COUNT 8.3 x10^3/uL (4.8-10.8)
[2022-04-25 17:54] LABS: ALBUMIN 4.2 g/dL (3.2-5.5); ALBUMIN/GLOBULIN RATIO 1.3 (1.0-2.2); ALKALINE PHOSPHATASE 69 IU/L (42-121); ALT ALANINE AMINOTRANSFERASE 29 IU/L (10-60); AST ASPARTATE AMINOTRANSFERASE 22 IU/L (10-42); BILIRUBIN,TOTAL 1.6 mg/dL (0.2-1.0); BUN - BLOOD UREA NITROGEN 14 mg/dL (6-20); CALCIUM 9.4 mg/dL (8.5-10.3); CARBON DIOXIDE - CO2 28 mmol/L (21-32); CHLORIDE 102 mmol/L (101-111); CREATININE 0.9 mg/dL (0.4-1.0); GFR - MDRD 61 (>89); GLUCOSE 99 mg/dL (70-100); LIPASE 38 U/L (22-51); POTASSIUM 4.3 mmol/L (3.5-5.0); SODIUM 138 mmol/L (135-145); TOTAL PROTEIN 7.5 g/dL (6.7-8.2)
[2022-04-25 18:01] LABS: CRP - C-REACTIVE PROTEIN < 1.0 mg/dL (0-1.0)
== END 2022-04-25 23:59 | disposition home or self-care (01) ==
LOC: DI.N 12:54
PROVIDERS: ATTEND Registered Nurse
DX: R10.9 Unspecified abdominal pain (principal); R30.0 Dysuria
CPT/HCPCS: 36415; 80053; 83690; 85025; 86140; 87086

== ENCOUNTER 2022-05-30 14:04 | Outpatient (CLI) | payer MEDICARE, BC ==
--- NOTE | 2022-05-31 10:37 | Mammography Report ---
BILATERAL DIGITAL SCREENING MAMMOGRAM 3D/2D: 05/30/2022 CLINICAL: Routine screening. Comparison is made to exams dated: 06/08/2015 mammogram and 02/22/2014 mammogram - [facility]. There are scattered areas of fibroglandular density in both breasts (category b / 25%-50% glandular t issue). No significant masses, calcifications, or other findings are seen in either breast. There has been no significant interval change. IMPRESSION: NEGATIVE There is no mammographic evidence of malignancy. A 1 year screening mammogram is recommended. Based on the Tyrer Cuzick model (a risk assessment model) the patients lifetime risk is 1.8% and her 10 year risk is 0.0%. According to the ACR, ACS, and NCCN guidelines, an annual breast MRI exam melanie g with mammogram is recommended if the patients lifetime risk is 20% or greater. This exam was interpreted at Station ID: [id number]. NOTE: For mammograms, a report in lay terms will be sent to the patient. Approximately 15% of breast malignancies will not be visualized mammographically. In the management of a palpable breast mass, a negative mammogram must not discourage biopsy of a clinically suspicious lesion. Electronically Signed By: Enedina kathleen/sharlene:05/31/2022 09:06:36 ACR BI-RADS Category 1: Negative 3341F PARENCHYMAL PATTERN: (A) - The breast(s) demonstrate(s) scattered fibroglandular densities. BI-RADS CATEGORY: (1) - 1 RECOMMENDATION: (ANNUAL) - Recommend routine annual screening mammography. [id number] 1 year screening LATERALITY: (B)
== END 2022-05-30 14:05 | disposition home or self-care (01) ==
LOC: DI.S 14:04
PROVIDERS: ATTEND Registered Nurse
DX: Z12.31 Encounter for screening mammogram for malignant neoplasm of breast (principal)

== ENCOUNTER 2022-09-10 10:43 | Outpatient (CLI) | payer MEDICARE, BC ==
--- NOTE | 2022-09-13 13:08 | Mammography Report ---
UNILATERAL RIGHT DIGITAL DIAGNOSTIC MAMMOGRAM 3D/2D: 09/10/2022 CLINICAL: Palpable right axilla lump. Comparison is made to exams dated: 05/30/2022 mammogram and 06/23/2015 mammogram - [facility] with [facility]. There are scattered areas of fibroglandular density in the right breast (category b / 25%-50% glandul ar tissue). No significant masses, calcifications, or other findings are seen in the breast. IMPRESSION: INCOMPLETE: NEEDS ADDITIONAL IMAGING EVALUATION There is no abnormality seen in the right axilla to correspond with the area of clinical concern in t he right axilla, however, ultrasound is recommended. Future imaging is recommended as follows: 05/31/2023 screening mammogram. Based on the Tyrer Cuzick model (a risk assessment model) the patients lifetime risk is 1.5% and her 10 year risk is 0.0%. According to the ACR, ACS, and NCCN guidelines, an annual breast MRI exam melanie g with mammogram is recommended if the patients lifetime risk is 20% or greater. This exam was interpreted at Station ID: [id number]. NOTE: For mammograms, a report in lay terms will be sent to the patient. Approximately 15% of breast malignancies will not be visualized mammographically. In the management of a palpable breast mass, a negative mammogram must not discourage biopsy of a clinically suspicious lesion. Electronically Signed By: Nolan Caputo M.D. lc/:09/10/2022 11:39:50 ACR BI-RADS Category 0: Incomplete 3340F PARENCHYMAL PATTERN: (A) - The breast(s) demonstrate(s) scattered fibroglandular densities. BI-RADS CATEGORY: (0) - 0 Ultrasound [id number] Immediate follow-up LATERALITY: (B)
--- NOTE | 2022-09-13 13:08 | Ultrasound Report ---
LIMITED ULTRASOUND OF RIGHT BREAST: 09/10/2022 CLINICAL: Palpable right axilla lump. Comparison is made to exams dated: 09/10/2022 mammogram, 05/30/2022 mammogram, 06/23/2015 mammogram, 06/23/2015 ultrasound, 06/08/2015 mammogram, and 02/22/2014 mammogram - [facility]. Color flow ultrasound of the right breast was performed. Banerjee scale images of the real-time examinat ion were reviewed. IMPRESSION: NEGATIVE There is no sonographic evidence of malignancy. The veins in the area appear patent. There is no abnormality seen in the right axilla to correspond with the area of clinical concern in t he right axilla, however, clinical correlation and clinical followup are recommended. Return to annual mammogram screening schedule is recommended. Future imaging is recommended as follo ws: 05/31/2023 screening mammogram. This exam was interpreted at Station ID: [id number]. Electronically Signed By: Nolan Caputo M.D. /:09/10/2022 11:40:52 Ultrasound BI-RADS: 1 Negative BI-RADS CATEGORY: (1) - 1 Mammogram [id number] return to screening LATERALITY: (B)
== END 2022-09-10 10:44 | disposition home or self-care (01) ==
LOC: DI 10:43
PROVIDERS: ATTEND Registered Nurse
DX: N63.31 Unspecified lump in axillary tail of the right breast (principal)

== ENCOUNTER 2022-10-18 13:07 | Outpatient (CLI) | payer MEDICARE, BC ==
[2022-10-18 19:44] LABS: BASOPHILS # (AUTO) 0.1 10^3/uL (0.0-0.1); BASOPHILS % (AUTO) 0.7 %; EOSINOPHILS # (AUTO) 0.2 10^3/uL (0.0-0.7); EOSINOPHILS % (AUTO) 1.7 %; HCT - HEMATOCRIT 42.5 % (37.0-47.0); HGB - HEMOGLOBIN 13.2 g/dL (12.0-16.0); LYMPHOCYTES # (AUTO) 2.4 10^3/uL (1.5-3.5); LYMPHOCYTES % (AUTO) 26.9 %; MEAN CORPUSCULAR HEMOGLOBIN 25.9 pg (27.0-31.0); MEAN CORPUSCULAR HGB CONC 31.1 g/dL (32.0-36.0); MEAN CORPUSCULAR VOLUME 83.5 fL (81.0-99.0); MEAN PLATELET VOLUME 8.8 fL (7.9-10.8); MONOCYTES # (AUTO) 0.7 10^3/uL (0.0-1.0); MONOCYTES % (AUTO) 7.8 %; NEUTROPHILS # (AUTO) 5.6 10^3/uL (1.5-6.6); NEUTROPHILS % (AUTO) 62.7 %; PLT - PLATELET COUNT 376 10^3/uL (130-450); RED BLOOD COUNT 5.09 10^6/uL (4.20-5.40); RED CELL DISTRIBUTION WIDTH 13.5 % (12.0-15.0); WHITE BLOOD COUNT 8.9 x10^3/uL (4.8-10.8)
[2022-10-18 19:48] LABS: BILIRUBIN,URINE NEGATIVE (NEGATIVE); GLUCOSE, URINE (UA) NEGATIVE (NEGATIVE); KETONES,URINE (UA) NEGATIVE (NEGATIVE); LEUKOCYTE ESTERASE, URINE TRACE (NEGATIVE); NITRITE,URINE NEGATIVE (NEGATIVE); OCCULT BLOOD,URINE SMALL (NEGATIVE); PH,URINE 6.5 PH (5.0-7.5); PROTEIN,URINE NEGATIVE (NEGATIVE); UROBILINOGEN,URINE 0.2 (NORMAL) E.U./dL (NORMAL)
[2022-10-18 19:51] LABS: CLARITY,URINE CLEAR (CLEAR)
[2022-10-18 19:54] LABS: ALBUMIN 3.9 g/dL (3.2-5.5); ALBUMIN/GLOBULIN RATIO 1.1 (1.0-2.2); CALCIUM 9.2 mg/dL (8.5-10.3); CREATININE 0.9 mg/dL (0.4-1.0); POTASSIUM 4.3 mmol/L (3.5-5.0); TOTAL PROTEIN 7.4 g/dL (6.7-8.2)
[2022-10-18 20:00] LABS: BACTERIA,URINE Few /HPF (None Seen); EPITHELIAL CELLS,UR FEW Transitional /HPF (<= Few); RBC,URINE 0-5 /HPF (0-5); SQUAMOUS EPITHELIAL CELL,UR MOD Squamous (<= Few)
[2022-10-18 20:12] LABS: URIC ACID 4.2 mg/dL (2.6-7.2)
[2022-10-18 20:28] LABS: CRP - C-REACTIVE PROTEIN < 1.0 mg/dL (0-1.0)
[2022-10-18 20:48] LABS: ESTIMATED AVERAGE GLUCOSE 126 mg/dL (70-100)
== END 2022-10-18 13:08 | disposition home or self-care (01) ==
LOC: LAB.S 13:07
PROVIDERS: ATTEND Internal Medicine
DX: M10.9 Gout, unspecified (principal); C64.9 Malignant neoplasm of unspecified kidney, except renal pelvis; N18.31 Chronic kidney disease, stage 3a; R79.9 Abnormal finding of blood chemistry, unspecified; Z79.899 Other long term (current) drug therapy; M13.0 Polyarthritis, unspecified; Z85.528 Personal history of other malignant neoplasm of kidney
CPT/HCPCS: 36415; 80053; 81001; 81003; 81599; 83036; 84550; 85025; 85651; 86140; 87086

== ENCOUNTER 2022-11-13 13:22 | Outpatient (CLI) | payer MEDICARE, BC ==
--- NOTE | 2022-11-13 16:29 | XRAY Report ---
PROCEDURE: Knee 2 View BILAT INDICATIONS: KNEE JOINT PAIN TECHNIQUE: 2 views of the bilateral knee(s) were acquired. COMPARISON: None. FINDINGS: Bones: No fractures or dislocations. No suspicious bony lesions. Bilateral medial compartment joint space narrowing with marginal osteophytes are present. Patellofemoral joint space narrowing present. Soft tissues: No effusion. No suspicious soft tissue calcifications or masses. IMPRESSION: Bilateral moderate osteoarthritis Reviewed by: Cosmo Worley MD on 11/13/2022 3:28 PM [facility] Approved by: Cosmo Worley MD on 11/13/2022 3:28 PM [facility] Station ID: [id number]
== END 2022-11-13 13:23 | disposition home or self-care (01) ==
LOC: DI 13:22
PROVIDERS: ATTEND Nurse Practitioner
DX: M17.0 Bilateral primary osteoarthritis of knee (principal)

== ENCOUNTER 2023-06-28 07:00 | Outpatient (CLI) | payer MEDICARE, BC ==
--- NOTE | 2023-06-28 20:13 | XRAY Report ---
PROCEDURE: Finger(s) RT INDICATIONS: RIGHT MIDDLE FINGER CONTUSION TECHNIQUE: AP hand, 2 views of the third finger(s) acquired. COMPARISON: None. FINDINGS: Bones: No fractures or dislocations. Severe degenerative changes of the interphalangeal joints with subchondral lucencies which may represent erosions versus subchondral cystic changes. No suspicious b bharat lesions. Soft tissues: No suspicious soft tissue calcifications or masses. IMPRESSION: 1.No acute bony abnormality. 2.Severe degenerative changes of the interphalangeal joints with subchondral lucencies which may repr esent subchondral cystic changes versus erosions, erosive osteoarthritis differential, most notably i nvolving the second DIP. Reviewed by: Jon Pelayo MD on 06/28/2023 8:11 PM PST Approved by: Jon Pelayo MD on 06/28/2023 8:11 PM PST Station ID: [id number]
== END 2023-06-28 23:59 | disposition home or self-care (01) ==
LOC: DI.S 07:00
PROVIDERS: ATTEND Emergency Medicine
DX: S60.031A Contusion of right middle finger without damage to nail, initial encounter (principal); M19.041 Primary osteoarthritis, right hand

== ENCOUNTER 2023-07-16 11:17 | Outpatient (CLI) | payer MEDICARE, BC ==
[2023-07-16 14:40] LABS: BILIRUBIN,URINE NEGATIVE (NEGATIVE); GLUCOSE, URINE (UA) NEGATIVE (NEGATIVE); KETONES,URINE (UA) NEGATIVE (NEGATIVE); LEUKOCYTE ESTERASE, URINE NEGATIVE (NEGATIVE); NITRITE,URINE NEGATIVE (NEGATIVE); OCCULT BLOOD,URINE TRACE-INTA (NEGATIVE); PROTEIN,URINE NEGATIVE (NEGATIVE); UROBILINOGEN,URINE 0.2 (NORMAL) E.U./dL (NORMAL)
[2023-07-16 14:42] LABS: CLARITY,URINE CLEAR (CLEAR)
[2023-07-16 14:52] LABS: BACTERIA,URINE Few /HPF (None Seen); RBC,URINE 0-5 /HPF (0-5); SQUAMOUS EPITHELIAL CELL,UR FEW Squamous (<= Few); WBC,URINE 0-3 /HPF (0-5)
== END 2023-07-16 11:18 | disposition home or self-care (01) ==
LOC: LAB.S 11:17
PROVIDERS: ATTEND Urology
DX: R39.15 Urgency of urination (principal)
CPT/HCPCS: 81001; 87086

== ENCOUNTER 2023-09-09 07:00 | Outpatient (CLI) | payer MEDICARE, BC ==
--- NOTE | 2023-09-09 16:07 | XRAY Report ---
PROCEDURE: Chest 2V INDICATIONS: ACUTE COUGH TECHNIQUE: 2 views of the chest were acquired. COMPARISON: None. FINDINGS: Surgical changes and devices: None. Lungs and pleura: No pleural effusions or pneumothorax. Lungs are clear. Mediastinum: Mediastinal contours appear normal. Heart size is normal. Bones and chest wall: No suspicious bony lesions. Overlying soft tissues appear unremarkable. IMPRESSION: No acute cardiopulmonary process. Reviewed by: Tyra España MD on 09/09/2023 4:05 PM [facility] Approved by: Tyra España MD on 09/09/2023 4:05 PM [facility] Station ID: [id number]
== END 2023-09-09 23:59 | disposition home or self-care (01) ==
LOC: DI.S 07:00
PROVIDERS: ATTEND Registered Nurse
DX: R05.1 Acute cough (principal); R06.09 Other forms of dyspnea

== ENCOUNTER 2023-11-12 10:21 | Outpatient (CLI) | payer MEDICARE, BC ==
[2023-11-12 14:48] LABS: BILIRUBIN,URINE NEGATIVE (NEGATIVE); GLUCOSE, URINE (UA) NEGATIVE (NEGATIVE); KETONES,URINE (UA) NEGATIVE (NEGATIVE); LEUKOCYTE ESTERASE, URINE MODERATE (NEGATIVE); NITRITE,URINE NEGATIVE (NEGATIVE); OCCULT BLOOD,URINE LARGE (NEGATIVE); PROTEIN,URINE 30 mg/dL (NEGATIVE); UROBILINOGEN,URINE 0.2 (NORMAL) E.U./dL (NORMAL)
[2023-11-12 14:50] LABS: CLARITY,URINE HAZY (CLEAR)
[2023-11-12 15:19] LABS: BACTERIA,URINE Many /HPF (None Seen); RBC,URINE TNTC /HPF (0-5); SQUAMOUS EPITHELIAL CELL,UR FEW Squamous (<= Few); WBC,URINE >25 /HPF (0-5)
== END 2023-11-12 10:22 | disposition home or self-care (01) ==
LOC: LAB.S 10:21
PROVIDERS: ATTEND Internal Medicine
DX: R39.15 Urgency of urination (principal)
CPT/HCPCS: 81001; 81003; 87086

== ENCOUNTER 2023-12-24 08:20 | Outpatient (CLI) | payer MEDICARE, BC ==
[2023-12-24 15:48] LABS: CALCIUM 9.7 mg/dL (8.5-10.3); CREATININE 0.8 mg/dL (0.6-1.3); POTASSIUM 4.1 mmol/L (3.5-4.5)
== END 2023-12-24 08:21 | disposition home or self-care (01) ==
LOC: LAB.S 08:20
PROVIDERS: ATTEND Registered Nurse
DX: Z08 Encounter for follow-up examination after completed treatment for malignant neoplasm (principal); Z85.528 Personal history of other malignant neoplasm of kidney
CPT/HCPCS: 36415; 80048

== ENCOUNTER 2023-12-31 08:00 | Outpatient (CLI) | payer MEDICARE, BC ==
[2023-12-31 20:02] LABS: BILIRUBIN,URINE NEGATIVE (NEGATIVE); GLUCOSE, URINE (UA) NEGATIVE (NEGATIVE); KETONES,URINE (UA) TRACE mg/dL (NEGATIVE); LEUKOCYTE ESTERASE, URINE SMALL (NEGATIVE); NITRITE,URINE NEGATIVE (NEGATIVE); OCCULT BLOOD,URINE SMALL (NEGATIVE); PH,URINE 5.5 PH (5.0-7.5); PROTEIN,URINE NEGATIVE (NEGATIVE); UROBILINOGEN,URINE 0.2 (NORMAL) E.U./dL (NORMAL)
[2023-12-31 20:03] LABS: CLARITY,URINE CLOUDY (CLEAR)
[2023-12-31 20:28] LABS: BACTERIA,URINE Moderate /HPF (None Seen); RBC,URINE 0-5 /HPF (0-5); SQUAMOUS EPITHELIAL CELL,UR FEW Squamous (<= Few)
== END 2023-12-31 23:59 | disposition home or self-care (01) ==
LOC: LAB.R 08:00
PROVIDERS: ATTEND Registered Nurse
DX: R31.9 Hematuria, unspecified (principal)
CPT/HCPCS: 81001; 87086

== ENCOUNTER 2024-01-01 08:23 | Outpatient (CLI) | payer MEDICARE, BC ==
[2024-01-01 14:47] LABS: CALCIUM 9.3 mg/dL (8.5-10.3); CREATININE 0.8 mg/dL (0.6-1.3); POTASSIUM 4.1 mmol/L (3.5-4.5)
[2024-01-01 21:03] LABS: ESTIMATED AVERAGE GLUCOSE 120 mg/dL (70-100); HEMOGLOBIN A1c% 5.8 % (4.27-6.07)
== END 2024-01-01 08:24 | disposition home or self-care (01) ==
LOC: LAB.S 08:23
PROVIDERS: ATTEND Registered Nurse
DX: R73.01 Impaired fasting glucose (principal); R31.9 Hematuria, unspecified
CPT/HCPCS: 36415; 80048; 81001; 81003; 83036; 87086

== ENCOUNTER 2024-01-14 12:41 | Outpatient (CLI) | payer MEDICARE, BC | END 2024-01-14 12:42 | disposition home or self-care (01) | LOC: LAB.S 12:41 | PROVIDERS: ATTEND Internal Medicine | DX: N18.31 Chronic kidney disease, stage 3a (principal); R79.9 Abnormal finding of blood chemistry, unspecified | CPT/HCPCS: 81599 ==

== ENCOUNTER 2024-01-15 10:53 | Outpatient (CLI) | payer MEDICARE, BC | END 2024-01-15 10:54 | disposition home or self-care (01) | LOC: LAB.S 10:53 | PROVIDERS: ATTEND Internal Medicine | DX: N18.31 Chronic kidney disease, stage 3a (principal); R76.12 Nonspecific reaction to cell mediated immunity measurement of gamma interferon antigen response without active tuberculosis; R79.9 Abnormal finding of blood chemistry, unspecified | CPT/HCPCS: 81599 ==

== ENCOUNTER 2024-01-25 08:00 | Outpatient (CLI) | payer MEDICARE, BC | END 2024-01-25 23:59 | disposition home or self-care (01) | LOC: LAB.S 08:00 | PROVIDERS: ATTEND Registered Nurse | DX: R30.0 Dysuria (principal) | CPT/HCPCS: 87086 ==

== ENCOUNTER 2024-01-27 14:28 | Outpatient (CLI) | payer MEDICARE, BC ==
[2024-01-27 19:49] LABS: BASOPHILS # (AUTO) 0.1 10^3/uL (0.0-0.1); BASOPHILS % (AUTO) 0.6 %; EOSINOPHILS # (AUTO) 0.2 10^3/uL (0.0-0.7); EOSINOPHILS % (AUTO) 2.6 %; HCT - HEMATOCRIT 41.4 % (37.0-47.0); HGB - HEMOGLOBIN 12.9 g/dL (12.0-16.0); LYMPHOCYTES # (AUTO) 1.6 10^3/uL (1.5-3.5); LYMPHOCYTES % (AUTO) 20.3 %; MEAN CORPUSCULAR HEMOGLOBIN 26.2 pg (27.0-31.0); MEAN CORPUSCULAR HGB CONC 31.2 g/dL (32.0-36.0); MEAN PLATELET VOLUME 8.9 fL (7.9-10.8); MONOCYTES # (AUTO) 0.6 10^3/uL (0.0-1.0); MONOCYTES % (AUTO) 7.8 %; NEUTROPHILS # (AUTO) 5.3 10^3/uL (1.5-6.6); NEUTROPHILS % (AUTO) 68.4 %; PLT - PLATELET COUNT 368 10^3/uL (130-450); RED BLOOD COUNT 4.93 10^6/uL (4.20-5.40); RED CELL DISTRIBUTION WIDTH 14.2 % (12.0-15.0); WHITE BLOOD COUNT 7.8 x10^3/uL (4.8-10.8)
[2024-01-27 20:00] LABS: ALBUMIN 4.2 g/dL (3.2-5.5); ALBUMIN/GLOBULIN RATIO 1.4 (1.0-2.2); BILIRUBIN,TOTAL 0.9 mg/dL (0.2-1.0); CALCIUM 9.2 mg/dL (8.5-10.3); CREATININE 0.8 mg/dL (0.6-1.3); POTASSIUM 4.2 mmol/L (3.5-4.5); TOTAL PROTEIN 7.1 g/dL (6.4-8.9)
== END 2024-01-27 14:29 | disposition home or self-care (01) ==
LOC: LAB.S 14:28
PROVIDERS: ATTEND Registered Nurse
DX: C75.1 Malignant neoplasm of pituitary gland (principal)
CPT/HCPCS: 36415; 80053; 85025

== ENCOUNTER 2024-03-23 14:40 | Outpatient (CLI) | payer MEDICARE, BC ==
--- NOTE | 2024-03-24 14:37 | XRAY Report ---
PROCEDURE: Knee 4+V BL INDICATIONS: KNEE JOINT INSTABILITY TECHNIQUE: 6 views of the knee(s) were acquired. COMPARISON: Knee radiograph on November 13, 2022. FINDINGS: Bones: No fractures or dislocations. No suspicious bony lesions. Tricompartmental joint space olayinka rowing and juxta-articular osteophytosis which is moderate in the medial and patellofemoral and mild in the lateral compartments bilaterally. Mild lateral patellar tilt and subluxation bilaterally on th e sunrise view. Chondrocalcinosis in the medial and lateral compartments bilaterally. Soft tissues: No knee joint effusion bilaterally. No suspicious soft tissue calcifications or masses . IMPRESSION: 1.No acute bony abnormality. 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 3.Chondrocalcinosis in the medial and lateral compartments bilaterally. Reviewed by: Cassie Emmanuel MD on 03/24/2024 2:35 PM PDT Approved by: Cassie Emmanuel MD on 03/24/2024 2:35 PM PDT Station ID: [id number]
--- NOTE | 2024-03-24 14:42 | XRAY Report ---
PROCEDURE: Foot 1-2V RT INDICATIONS: OTHER HAMMER TOES,BUNION RT TECHNIQUE: 2 views of the foot were acquired. COMPARISON: None. FINDINGS: Bones: No fractures or dislocations. Hallux valgus alignment with first metatarsophalangeal angle of 45.5 degrees with moderate first MTP joint space narrowing and juxta-articular osteophytosis. Mild t o moderate diffuse IP joint space narrowing and juxta-articular osteophytosis. Pes planus alignment w ith calcaneal pitch of 16.4 degrees. No suspicious bony lesions. Soft tissues: No tibiotalar joint effusion. Achilles tendon appears normal. Soft tissue bunion ove rlying the first MTP joint. IMPRESSION: 1.No acute bony abnormality. 2.Hallux valgus alignment with moderate first MTP and mild to moderate diffuse IP joint osteoarthriti s. 3.Pes planus alignment with calcaneal pitch of 16.4 degrees. Reviewed by: Cassie Emmanuel MD on 03/24/2024 2:41 PM PDT Approved by: Cassie Emmanuel MD on 03/24/2024 2:41 PM PDT Station ID: [id number]
== END 2024-03-23 14:41 | disposition home or self-care (01) ==
LOC: DI.S 14:40
PROVIDERS: ATTEND Registered Nurse
DX: M20.41 Other hammer toe(s) (acquired), right foot (principal); M25.369 Other instability, unspecified knee; M21.611 Bunion of right foot; M20.11 Hallux valgus (acquired), right foot; M21.41 Flat foot [pes planus] (acquired), right foot; M19.071 Primary osteoarthritis, right ankle and foot; M17.0 Bilateral primary osteoarthritis of knee; M11.262 Other chondrocalcinosis, left knee; M11.261 Other chondrocalcinosis, right knee

== ENCOUNTER 2024-04-21 11:36 | Outpatient (CLI) | payer MEDICARE, BC ==
[2024-04-21 11:49] LABS: BASOPHILS # (AUTO) 0.1 10^3/uL (0.0-0.1); BASOPHILS % (AUTO) 0.7 %; EOSINOPHILS # (AUTO) 0.1 10^3/uL (0.0-0.7); EOSINOPHILS % (AUTO) 1.9 %; HCT - HEMATOCRIT 42.5 % (37.0-47.0); HGB - HEMOGLOBIN 13.3 g/dL (12.0-16.0); LYMPHOCYTES # (AUTO) 1.6 10^3/uL (1.5-3.5); LYMPHOCYTES % (AUTO) 21.3 %; MEAN CORPUSCULAR HEMOGLOBIN 26.5 pg (27.0-31.0); MEAN CORPUSCULAR HGB CONC 31.3 g/dL (32.0-36.0); MEAN CORPUSCULAR VOLUME 84.8 fL (81.0-99.0); MEAN PLATELET VOLUME 8.5 fL (7.9-10.8); MONOCYTES # (AUTO) 0.5 10^3/uL (0.0-1.0); MONOCYTES % (AUTO) 6.9 %; NEUTROPHILS # (AUTO) 5.1 10^3/uL (1.5-6.6); NEUTROPHILS % (AUTO) 68.9 %; PLT - PLATELET COUNT 373 10^3/uL (130-450); RED BLOOD COUNT 5.01 10^6/uL (4.20-5.40); RED CELL DISTRIBUTION WIDTH 14.5 % (12.0-15.0); WHITE BLOOD COUNT 7.4 x10^3/uL (4.8-10.8)
[2024-04-21 12:01] LABS: ALBUMIN 3.9 g/dL (3.2-5.5); ALBUMIN/GLOBULIN RATIO 1.4 (1.0-2.2); BILIRUBIN,TOTAL 0.8 mg/dL (0.2-1.0); CALCIUM 8.9 mg/dL (8.5-10.3); CREATININE 0.7 mg/dL (0.6-1.3); POTASSIUM 4.1 mmol/L (3.5-4.5); TOTAL PROTEIN 6.6 g/dL (6.4-8.9)
== END 2024-04-21 11:37 | disposition home or self-care (01) ==
LOC: LAB 11:36
PROVIDERS: ATTEND Registered Nurse
DX: Z01.818 Encounter for other preprocedural examination (principal); K40.90 Unilateral inguinal hernia, without obstruction or gangrene, not specified as recurrent; E11.9 Type 2 diabetes mellitus without complications
CPT/HCPCS: 36415; 80053; 85025; 93005